=== PATIENT | male | born 1980 | race African-American/Black ===

== ENCOUNTER 2017-03-23 15:38 | Emergency (ER) | payer MEDICAID ==
[~2017-03-23] VITALS: Ht 170.2 cm; Wt 65.0 kg
[2017-03-23 15:40] VITALS: BP 130/92
== END 2017-03-23 17:24 | disposition home or self-care (01) ==
LOC: ER 15:56
DX: S43.111A Subluxation of right acromioclavicular joint, initial encounter (principal); V13.4XXA Pedal cycle driver injured in collision with car, pick-up truck or van in traffic accident, initial encounter; Y93.55 Activity, bike riding; Y92.89 Other specified places as the place of occurrence of the external cause
CPT/HCPCS: 73030; 99284; A4565

== ENCOUNTER 2018-11-02 16:01 | Emergency (ER) | payer MEDICAID ==
[~2018-11-02] VITALS: Ht 170.2 cm; Wt 75.0 kg
[2018-11-02 16:28] VITALS: BP 126/78
[2018-11-02] MEDS ORDERED: ACETAMINOPHEN 325MG TABLET PO ONE (17:30)
== END 2018-11-02 18:23 | disposition home or self-care (01) ==
LOC: ER 16:01
DX: S09.90XA Unspecified injury of head, initial encounter (principal); M25.512 Pain in left shoulder; M25.511 Pain in right shoulder; V19.88XA Pedal cyclist (driver) (passenger) injured in other specified transport accidents, initial encounter; Y93.89 Activity, other specified; Y92.89 Other specified places as the place of occurrence of the external cause; Y99.8 Other external cause status
CPT/HCPCS: 99284

== ENCOUNTER 2020-04-04 17:37 | Emergency (ER) | payer MEDICAID ==
[~2020-04-04] VITALS: Ht 167.6 cm; Wt 68.0 kg
[2020-04-04] MEDS ORDERED: IBUPROFEN 600MG TABLET PO ONE (18:00)
[2020-04-04 18:35] VITALS: BP 141/99
[2020-04-04] MEDS ORDERED: IBUP-2029 MT (19:16)
== END 2020-04-04 19:47 | disposition home or self-care (01) ==
LOC: ER 17:37
DX: S60.052A Contusion of left little finger without damage to nail, initial encounter (principal); R03.0 Elevated blood-pressure reading, without diagnosis of hypertension; W20.8XXA Other cause of strike by thrown, projected or falling object, initial encounter; Y93.89 Activity, other specified; Y92.89 Other specified places as the place of occurrence of the external cause
CPT/HCPCS: 73140; 99283

== ENCOUNTER 2020-04-10 19:43 | Emergency (ER) | payer MEDICAID ==
[~2020-04-10] VITALS: Ht 165.1 cm; Wt 64.0 kg
[~2020-04-10 19:43] MED LIST: IBUP-2029 MT
[2020-04-10 19:57] VITALS: BP 124/89
== END 2020-04-10 21:32 | disposition home or self-care (01) ==
LOC: ER 19:43
DX: M20.012 Mallet finger of left finger(s) (principal)
CPT/HCPCS: 29125; 73130; 99283; A4565

== ENCOUNTER 2023-07-26 19:24 | Emergency (ER) | payer MEDICAID, OTHER ==
[~2023-07-26] VITALS: Ht 172.7 cm; Wt 80.0 kg
[2023-07-26 19:27] VITALS: O2SAT 89
[2023-07-26 22:46] VITALS: BP 138/94; PULSE 80; RESP 14; TEMP 97.9
== END 2023-07-26 23:25 | disposition left against medical advice (07) ==
LOC: ER 19:24
DX: F10.129 Alcohol abuse with intoxication, unspecified (principal); Y90.9 Presence of alcohol in blood, level not specified
CPT/HCPCS: 70450; 72125; 71250; 74176; 99284; Z7610 ×2; 80048; 80320; G0480